=== PATIENT | female | born 1980 | race Caucasian/White ===

== ENCOUNTER 2025-01-14 15:31 | Emergency (ER) | payer OTHER ==
[~2025-01-14] VITALS: Ht 167.6 cm; Wt 80.0 kg
[2025-01-14 15:52] VITALS: O2SAT 96
[2025-01-14 20:26] LABS: BASOPHILS % 0.7 % (0.0-2.0); EOSINOPHILS % 1.1 % (0.0-5.0); HEMATOCRIT. 38.6 % (36.0-48.0); HEMOGLOBIN. 13.1 g/dL (12.0-16.0); LYMPHOCYTES % 22.8 % (20.0-50.0); MEAN CORPUSCULAR HEMOGLOBIN 29.7 pg (28.0-32.0); MEAN CORPUSCULAR HGB CONC 33.9 g/dL (31.0-37.0); MEAN CORPUSCULAR VOLUME 87.7 fL (81.0-99.0); MEAN PLATELET VOLUME 7.5 fl (7.4-10.4); NEUTROPHILS % 69.4 % (40.0-76.0); PLATELET 230 x1000/uL (130-400); RED CELL DISTRIBUTION WIDTH 13.7 % (11.6-14.6); WHITE BLOOD COUNT 9.5 x1000/uL (4.5-11.0)
[2025-01-14 20:32] LABS: CHLORIDE 107 mEq/L (98-107); POTASSIUM 3.9 mEq/L (3.5-5.1); SODIUM 139 mEq/L (136-145)
[2025-01-14 20:33] LABS: CARBON DIOXIDE 26 mEq/L (21-32)
[2025-01-14 20:34] LABS: CALCIUM 8.9 mg/dL (8.7-10.4)
[2025-01-14 20:38] LABS: CREATININE 0.9 mg/dL (0.6-1.0); GLUCOSE 77 mg/dL (70-105); UREA NITROGEN BLOOD 18 mg/dL (9-23)
[2025-01-14] MEDS: KETOROLAC 30MG/ML VIAL IV STA (20:58)
[2025-01-14] MEDS: HYDROCODONE/ACETAMINOPHEN 5/325MG TABLET PO STA (20:58)
[2025-01-14] MEDS: ONDANSETRON HCL 4MG/2ML INJ IV STA (20:58)
[2025-01-14] MEDS ORDERED: AMOX1TAB16 MT (22:07)
[2025-01-14 22:20] VITALS: BP 105/68; PULSE 79; RESP 18; TEMP 36.8; O2SAT 97
[2025-01-14] MEDS: IOHEXOL-300 100 ML BOTTLE ONE (22:29)
[2025-01-15 00:10] LABS: HCG SCREEN NEGATIVE
== END 2025-01-14 22:24 | disposition home or self-care (01) ==
LOC: ER 15:31
DX: R22.0 Localized swelling, mass and lump, head (principal); E03.9 Hypothyroidism, unspecified; Z98.51 Tubal ligation status
CPT/HCPCS: 99285; 96374; 70487; 96375; 80048; 81025; 84703; 85025; 36415; J1885; Q9967; J2405